=== PATIENT | female | born 1965 | race Caucasian/White ===

== ENCOUNTER → 2016-08-30 | Outpatient (CLI) | payer OTHER ==
[~2016-08-30] MED LIST: CALC-437 OR; FERR-7 PO; FURO40TA PO; LEVO50TA66 PO; MULT-690 PO; POTA-167 PO; SPIR50TA2 PO; WARF4TAB31 PO
[2016-08-30 16:53] LABS: Partial Thromboplastin Time 41.6 sec (22.64-33.71)
[2016-08-30 17:03] LABS: INR 2.34 (0.9-1.15); Prothrombin Time 24.1 sec (9.37-12.3)
== END | disposition home or self-care (01) ==
LOC: LAB 11:48
PROVIDERS: ATTEND Internal Medicine Cardiovascular Disease
DX: K74.60 Unspecified cirrhosis of liver (principal); R79.1 Abnormal coagulation profile; D64.9 Anemia, unspecified; Z13.0 Encounter for screening for diseases of the blood and blood-forming organs and certain disorders involving the immune mechanism
CPT/HCPCS: 36415; 82390; 82728; 83540; 85610; 85730; 86225; 86235; 86592; 86644; 86645; 86664; 86704; 86706; 86708; 86803; 87340

== ENCOUNTER → 2016-09-06 | Outpatient (CLI) | payer OTHER ==
[2016-09-06 09:40] VITALS: BP 117/79
[2016-09-06 16:47] LABS: Partial Thromboplastin Time 39.9 sec (22.64-33.71)
[2016-09-06 16:50] LABS: Basophils # (auto) 0.1 uL; Basophils % (auto) 1.3 % (0.0-2.0); DEFINITIVE VIEW TRANSMISSION; Eosinophils # (auto) 0.2 uL; Eosinophils % (auto) 3.6 % (0.0-7.0); Hematocrit 40.3 % (36.0-46.0); Hemoglobin 13.1 g/dL (12.2-16.2); Lymphocytes # (auto) 0.6 uL; Lymphocytes % (auto) 13.9 % (10.0-50.0); Mean Corpuscular Hemoglobin 26.7 pg (28.0-32.0); Mean Corpuscular Hgb Conc. 32.4 g/dL (32.0-36.0); Mean Corpuscular Volume 82.4 fL (80.0-100.0); Mean Platelet Volume 8.2 fL (7.4-10.4); Monocytes # (auto) 0.3 uL; Monocytes % (auto) 7.1 % (0.0-12.0); Neutrophils # (auto) 3.3 uL; Neutrophils % (auto) 74.1 % (37.0-80.0); Platelet Count (auto) 199 10^3/uL (140-450); Red Cell Distribution Width 16.9 % (11.6-16.0); White Blood Cell 4.4 10^3/uL (4.4-10.8)
[2016-09-06 16:59] LABS: INR 2.01 (0.9-1.15); Prothrombin Time 20.7 sec (9.37-12.3)
[2016-09-06 17:27] LABS: BUN/Creatinine Ratio 17.4; Calcium 10.4 mg/dL (8.5-10.1); Potassium 3.9 mmol/L (3.5-5.1)
== END | disposition home or self-care (01) ==
LOC: Rad HDHVI 09:38
PROVIDERS: ATTEND Internal Medicine Cardiovascular Disease
DX: I10 Essential (primary) hypertension (principal); D64.9 Anemia, unspecified; R79.1 Abnormal coagulation profile
CPT/HCPCS: 36415; 71020; 80048; 85025; 85610; 85730; G0463

== ENCOUNTER 2016-09-08 06:39 | Day surgery (SDC) | payer OTHER ==
[2016-09-08 18:03] LABS: Body Fluid Polymorphonuclear 20 %
== END 2016-09-08 13:08 | disposition home or self-care (01) ==
LOC: CATH 06:39
PROVIDERS: ATTEND Internal Medicine Cardiovascular Disease
DX: R18.8 Other ascites (principal); K74.69 Other cirrhosis of liver; D64.9 Anemia, unspecified; Z95.0 Presence of cardiac pacemaker; I48.91 Unspecified atrial fibrillation; I09.9 Rheumatic heart disease, unspecified
CPT/HCPCS: 49083; 82945; 83615; 84155; 84157; 87205; 88104; 88305; 88341; 88342; 89051; J7030

== ENCOUNTER → 2016-11-07 | Outpatient (CLI) | payer OTHER ==
[2016-11-07 12:29] LABS: Partial Thromboplastin Time 38.8 sec (22.64-33.71)
[2016-11-07 12:45] LABS: Albumin 3.8 g/dL (3.4-5.0); BUN/Creatinine Ratio 11.5; Calcium 8.7 mg/dL (8.5-10.1); INR 2.07 (0.9-1.15); Potassium 3.6 mmol/L (3.5-5.1); Prothrombin Time 21.3 sec (9.37-12.3)
[2016-11-07 12:48] LABS: Bilirubin, Total 1.9 mg/dL (0.2-1.0); Total Protein 7.9 g/dL (6.4-8.2)
[2016-11-07 12:55] LABS: B-Type Natriuretic Peptide 72.51 pg/mL (0-100)
[2016-11-07 13:05] LABS: Temperature: 22.3 C (20.0-25.0)
[2016-11-07 13:29] LABS: Basophils # (auto) 0 uL; Basophils % (auto) 0.8 % (0.0-2.0); Eosinophils # (auto) 0.2 uL; Eosinophils % (auto) 5.3 % (0.0-7.0); Hematocrit 37.7 % (36.0-46.0); Hemoglobin 12.7 g/dL (12.2-16.2); Lymphocytes # (auto) 0.6 uL; Lymphocytes % (auto) 16.2 % (10.0-50.0); Mean Corpuscular Hemoglobin 27.6 pg (28.0-32.0); Mean Corpuscular Hgb Conc. 33.6 g/dL (32.0-36.0); Mean Corpuscular Volume 82.2 fL (80.0-100.0); Monocytes # (auto) 0.3 uL; Monocytes % (auto) 7.4 % (0.0-12.0); Neutrophils # (auto) 2.7 uL; Neutrophils % (auto) 70.3 % (37.0-80.0); Platelet Count (auto) 199 10^3/uL (140-450); Red Cell Distribution Width 17.1 % (11.6-16.0); White Blood Cell 3.9 10^3/uL (4.4-10.8)
== END | disposition home or self-care (01) ==
LOC: LAB 09:54
PROVIDERS: ATTEND Internal Medicine Cardiovascular Disease
DX: I50.20 Unspecified systolic (congestive) heart failure (principal); K74.60 Unspecified cirrhosis of liver
CPT/HCPCS: 36415; 80053; 82103; 82105; 82390; 82728; 83540; 83550; 83880; 85025; 85610; 85730; 86038

== ENCOUNTER → 2016-12-06 | Outpatient (CLI) | payer OTHER ==
[~2016-12-06] MED LIST changes: +LEVO75TA50 PO; +POTA10TA51 PO
[2016-12-06 09:15] VITALS: BP 110/82
[2016-12-06 10:00] VITALS: BP 110/77
[2016-12-06 16:10] LABS: Partial Thromboplastin Time 39.1 sec (22.64-33.71)
[2016-12-06 16:11] LABS: Basophils # (auto) 0 uL; Basophils % (auto) 0.5 % (0.0-2.0); Eosinophils # (auto) 0.2 uL; Eosinophils % (auto) 4.6 % (0.0-7.0); Lymphocytes # (auto) 0.6 uL; Lymphocytes % (auto) 14.5 % (10.0-50.0); Mean Corpuscular Hemoglobin 27.3 pg (28.0-32.0); Mean Corpuscular Hgb Conc. 33.3 g/dL (32.0-36.0); Mean Corpuscular Volume 81.8 fL (80.0-100.0); Monocytes # (auto) 0.3 uL; Monocytes % (auto) 8.9 % (0.0-12.0); Neutrophils # (auto) 2.8 uL; Neutrophils % (auto) 71.5 % (37.0-80.0); Platelet Count (auto) 220 10^3/uL (140-450); Red Cell Distribution Width 16.3 % (11.6-16.0); White Blood Cell 3.9 10^3/uL (4.4-10.8)
[2016-12-06 16:14] LABS: INR 1.94 (0.9-1.15)
[2016-12-06 16:18] LABS: BUN/Creatinine Ratio 13.2; Calcium 9.2 mg/dL (8.5-10.1); Potassium 3.8 mmol/L (3.5-5.1)
== END | disposition home or self-care (01) ==
LOC: Rad HDHVI 08:50
PROVIDERS: ATTEND Internal Medicine Cardiovascular Disease
DX: I10 Essential (primary) hypertension (principal); D64.9 Anemia, unspecified; R79.1 Abnormal coagulation profile; Z01.812 Encounter for preprocedural laboratory examination
CPT/HCPCS: 36415; 71020; 80048; 85025; 85610; 85730; 93005; G0463

== ENCOUNTER 2016-12-08 11:39 | Day surgery (SDC) | payer OTHER ==
[2016-12-08 20:14] LABS: Body Fluid Polymorphonuclear 20 %
== END 2016-12-08 15:00 | disposition home or self-care (01) ==
LOC: CATH 11:39
PROVIDERS: ATTEND Internal Medicine Cardiovascular Disease
DX: K72.90 Hepatic failure, unspecified without coma (principal); R18.8 Other ascites; I09.9 Rheumatic heart disease, unspecified
CPT/HCPCS: 36415; 49083; 87205; 88305; 88342; 89051; J7030

== ENCOUNTER → 2016-12-12 | Outpatient (CLI) | payer OTHER | END | disposition home or self-care (01) | LOC: Rad HDHVI 14:48 | PROVIDERS: ATTEND Internal Medicine Cardiovascular Disease | DX: K74.60 Unspecified cirrhosis of liver (principal) | CPT/HCPCS: 93306 ==

== ENCOUNTER → 2016-12-26 | Outpatient (CLI) | payer OTHER | END | disposition home or self-care (01) | LOC: HDHVI->DVH 11:00 | PROVIDERS: ATTEND Internal Medicine Cardiovascular Disease | DX: R18.8 Other ascites (principal) | CPT/HCPCS: 76700 ==

== ENCOUNTER → 2017-02-28 | Outpatient (CLI) | payer OTHER ==
[~2017-02-28] VITALS: Ht 162.6 cm; Wt 59.9 kg
[2017-02-28 09:20] VITALS: BP 119/75
[2017-02-28 09:45] VITALS: BP 121/74
[2017-02-28 12:29] LABS: Basophils # (auto) 0 uL; CONDITION Y; Eosinophils # (auto) 0.1 uL; Eosinophils % (auto) 3.1 % (0.0-7.0); Hematocrit 39.2 % (36.0-46.0); Hemoglobin 13.3 g/dL (12.2-16.2); Lymphocytes # (auto) 0.6 uL; Lymphocytes % (auto) 14.8 % (10.0-50.0); Mean Corpuscular Hemoglobin 28.3 pg (28.0-32.0); Mean Corpuscular Hgb Conc. 33.9 g/dL (32.0-36.0); Mean Corpuscular Volume 83.6 fL (80.0-100.0); Monocytes # (auto) 0.3 uL; Monocytes % (auto) 7.4 % (0.0-12.0); Neutrophils # (auto) 2.9 uL; Neutrophils % (auto) 73.7 % (37.0-80.0); Platelet Count (auto) 204 10^3/uL (140-450); Red Cell Distribution Width 16.5 % (11.6-16.0); White Blood Cell 3.9 10^3/uL (4.4-10.8)
[2017-02-28 12:45] LABS: INR 1.53 (0.9-1.15); Partial Thromboplastin Time 34.9 sec (22.64-33.71)
[2017-02-28 12:57] LABS: Potassium 3.8 mmol/L (3.5-5.1)
[2017-02-28 12:58] LABS: Prothrombin Time 16.8 sec (9.37-12.3)
== END | disposition home or self-care (01) ==
LOC: Rad HDHVI 08:58
PROVIDERS: ATTEND Internal Medicine Cardiovascular Disease
DX: Z01.812 Encounter for preprocedural laboratory examination (principal); I70.0 Atherosclerosis of aorta; I10 Essential (primary) hypertension; I51.7 Cardiomegaly; D64.9 Anemia, unspecified; K74.69 Other cirrhosis of liver; I25.10 Atherosclerotic heart disease of native coronary artery without angina pectoris; R79.1 Abnormal coagulation profile; Z95.2 Presence of prosthetic heart valve
CPT/HCPCS: 36415; 71020; 80048; 85025; 85610; 85730; 93005; G0463

== ENCOUNTER → 2017-03-14 | Outpatient (CLI) | payer OTHER ==
[~2017-03-14] MED LIST changes: -LEVO50TA66 PO; -POTA10TA51 PO
[2017-03-14 12:05] VITALS: BP 114/76
[2017-03-14 13:05] VITALS: BP 119/77
== END | disposition home or self-care (01) ==
LOC: CHF HDHVI 11:58
PROVIDERS: ATTEND Internal Medicine Cardiovascular Disease
DX: I50.9 Heart failure, unspecified (principal); J90 Pleural effusion, not elsewhere classified
CPT/HCPCS: 93701; 94620; G0463

== ENCOUNTER → 2017-03-22 | Outpatient (CLI) | payer OTHER ==
[2017-03-22 09:40] VITALS: BP 107/65
[2017-03-22 10:20] VITALS: BP 100/62
== END | disposition home or self-care (01) ==
LOC: CHF HDHVI 09:38
PROVIDERS: ATTEND Internal Medicine Cardiovascular Disease
DX: I27.0 Primary pulmonary hypertension (principal); K74.60 Unspecified cirrhosis of liver
CPT/HCPCS: G0463

== ENCOUNTER → 2017-04-13 | Outpatient (CLI) | payer OTHER ==
[2017-04-13 12:00] VITALS: BP 116/74
[2017-04-13 15:26] VITALS: BP 118/78
== END | disposition home or self-care (01) ==
LOC: CHF HDHVI 10:08
PROVIDERS: ATTEND Internal Medicine Cardiovascular Disease
DX: I09.9 Rheumatic heart disease, unspecified (principal); I27.0 Primary pulmonary hypertension
CPT/HCPCS: G0463

== ENCOUNTER 2017-04-16 09:13 | Inpatient (IN) | payer OTHER ==
[~2017-04-16] VITALS: Ht 162.6 cm; Wt 55.9 kg
[2017-04-16 11:30] LABS: Basophils # (auto) 0.1 uL; Basophils % (auto) 1.4 % (0.0-2.0); CONDITION Y; Eosinophils # (auto) 0.1 uL; Eosinophils % (auto) 3.1 % (0.0-7.0); Hemoglobin 12.8 g/dL (12.2-16.2); Lymphocytes # (auto) 0.5 uL; Lymphocytes % (auto) 12.6 % (10.0-50.0); Mean Corpuscular Hemoglobin 29.1 pg (28.0-32.0); Mean Corpuscular Hgb Conc. 34.5 g/dL (32.0-36.0); Mean Corpuscular Volume 84.5 fL (80.0-100.0); Mean Platelet Volume 6.8 fL (7.4-10.4); Monocytes # (auto) 0.3 uL; Monocytes % (auto) 7.5 % (0.0-12.0); Neutrophils # (auto) 3.1 uL; Neutrophils % (auto) 75.4 % (37.0-80.0); Platelet Count (auto) 229 10^3/uL (140-450); White Blood Cell 4.1 10^3/uL (4.4-10.8)
[2017-04-16 11:52] LABS: Albumin 3.6 g/dL (3.4-5.0); Alkaline Phosphatase 150 U/L (45-117); Anion Gap 10 (5-15); Aspartate Aminotransferase 27 U/L (15-37); BUN/Creatinine Ratio 10.7; Bilirubin, Total 1.8 mg/dL (0.2-1.0); Blood Urea Nitrogen 9 mg/dL (7-18); Calcium 8.9 mg/dL (8.5-10.1); Carbon Dioxide 26 mmol/L (21-32); Chloride 92 mmol/L (98-107); GFR African American 91 mL/min; GFR Non-African American 75 mL/min; Glucose 86 mg/dL (74-106); Potassium 3.9 mmol/L (3.5-5.1); Sodium 128 mmol/L (136-145); Total Protein 7.6 g/dL (6.4-8.2)
[2017-04-16] MEDS ORDERED: LEVOFLOXACIN 500MG 100 ML IV ONE (12:00)
[2017-04-16] MEDS ORDERED: MORPHINE SULF INJ 2 MG/ML SYRINGE 1ML IV PRN ×2 (13:30)
[2017-04-16] MEDS ORDERED: ACETAMINOPHEN 325 MG TAB PO PRN (13:30)
[2017-04-16] MEDS ORDERED: TEMAZEPAM 15 MG CAP PO PRN (13:30)
[2017-04-16] MEDS ORDERED: HYDROcodone-ACET 5/325MG TAB PO PRN (13:30)
[2017-04-16] MEDS ORDERED: ONDANSETRON HCL 4 MG/2 ML VIAL IV PRN (13:30)
[2017-04-16] MEDS ORDERED: VANCOMYCIN PER PHARMACY 0 MG IV SCH (13:30)
[2017-04-16] MEDS ORDERED: DOCUSATE SOD 100 MG CAP PO PRN (13:30)
[2017-04-16] MEDS ORDERED: NITROGLYCERIN 0.4 MG SL TAB SL PRN (13:30)
[2017-04-16 13:54] LABS: INR 1.44 (0.9-1.15); Prothrombin Time 15.8 sec (9.37-12.3)
[2017-04-16] MEDS: SODIUM CHLOR 0.9% PF (SALINE LOCK) 10ML VIAL IV SCH ×2 (14:07→21:49)
[2017-04-16] MEDS: VANCOMYCIN 1GM/250ML D5W 250 ML IV SCH (15:08)
[2017-04-16] MEDS ORDERED: WARFARIN SODIUM 5 MG TAB PO ONE (17:00)
[2017-04-16] MEDS: SPIRONOLACTONE 25 MG TAB PO SCH (18:00)
[2017-04-16] MEDS: FERROUS SULFATE 325 MG TAB PO SCH (18:00)
[2017-04-16 18:08] VITALS: BP 93/84
[2017-04-16] MEDS: FAMOTIDINE 20 MG TAB PO SCH (21:49)
[2017-04-16 22:00] VITALS: BP 105/70
[2017-04-17] MEDS: VANCOMYCIN 1GM/250ML D5W 250 ML IV SCH ×2 (03:37→15:00)
[2017-04-17 05:30] VITALS: BP 107/72
[2017-04-17 05:36] LABS: Basophils # (auto) 0 uL; Basophils % (auto) 0.9 % (0.0-2.0); CONDITION Y; Eosinophils # (auto) 0.1 uL; Eosinophils % (auto) 2.9 % (0.0-7.0); Hematocrit 36.9 % (36.0-46.0); Hemoglobin 12.6 g/dL (12.2-16.2); Lymphocytes # (auto) 0.5 uL; Lymphocytes % (auto) 12.2 % (10.0-50.0); Mean Corpuscular Hemoglobin 28.8 pg (28.0-32.0); Mean Corpuscular Hgb Conc. 34.1 g/dL (32.0-36.0); Mean Corpuscular Volume 84.3 fL (80.0-100.0); Mean Platelet Volume 7.1 fL (7.4-10.4); Monocytes # (auto) 0.3 uL; Monocytes % (auto) 6.7 % (0.0-12.0); Neutrophils # (auto) 3.2 uL; Neutrophils % (auto) 77.3 % (37.0-80.0); Platelet Count (auto) 207 10^3/uL (140-450); Red Cell Distribution Width 15.8 % (11.6-16.0); White Blood Cell 4.1 10^3/uL (4.4-10.8)
[2017-04-17 05:49] LABS: INR 1.52 (0.9-1.15); Partial Thromboplastin Time 34.1 sec (22.64-33.71); Prothrombin Time 16.6 sec (9.37-12.3)
[2017-04-17 05:56] LABS: Albumin 2.8 g/dL (3.4-5.0); BUN/Creatinine Ratio 11.6; Potassium 3.9 mmol/L (3.5-5.1)
[2017-04-17 05:59] LABS: Bilirubin, Total 1.6 mg/dL (0.2-1.0); Total Protein 6.4 g/dL (6.4-8.2)
[2017-04-17] MEDS: SODIUM CHLOR 0.9% PF (SALINE LOCK) 10ML VIAL IV SCH ×3 (05:59→21:59)
[2017-04-17] MEDS: LEVOTHYROXINE SODIUM 25 MCG TAB PO SCH (06:29)
[2017-04-17] MEDS: SPIRONOLACTONE 25 MG TAB PO SCH ×3 (08:00→17:05)
[2017-04-17 09:00] VITALS: BP 99/69
[2017-04-17] MEDS: FERROUS SULFATE 325 MG TAB PO SCH ×2 (09:58→17:05)
[2017-04-17] MEDS: MULTIPLE VITAMIN TAB PO SCH (09:58)
[2017-04-17] MEDS: POTASSIUM CHL 10 Meq TABLET PO SCH (09:59)
[2017-04-17] MEDS: FAMOTIDINE 20 MG TAB PO SCH ×2 (09:59→22:00)
[2017-04-17] MEDS: FUROSEMIDE 40 MG TAB PO SCH (10:00)
[2017-04-17] MEDS: CALCIUM W/VIT D (600MG/400IU) TAB PO SCH (10:00)
[2017-04-17] MEDS: LEVOFLOXACIN 500MG 100 ML IV SCH (10:01)
[2017-04-17 13:00] VITALS: BP 103/64
[2017-04-17 16:50] VITALS: BP 99/66
[2017-04-17] MEDS ORDERED: WARFARIN SODIUM 5 MG TAB PO ONE (17:00)
[2017-04-17 22:00] VITALS: BP 110/65
[2017-04-18 02:32] LABS: INR 1.91 (0.9-1.15); Partial Thromboplastin Time 34.3 sec (22.64-33.71)
[2017-04-18] MEDS: VANCOMYCIN 1GM/250ML D5W 250 ML IV SCH (02:44)
[2017-04-18 05:30] VITALS: BP 99/63
[2017-04-18] MEDS: SODIUM CHLOR 0.9% PF (SALINE LOCK) 10ML VIAL IV SCH (06:05)
[2017-04-18] MEDS: LEVOTHYROXINE SODIUM 25 MCG TAB PO SCH (06:13)
[2017-04-18 07:30] VITALS: BP 90/55
[2017-04-18] MEDS: SPIRONOLACTONE 25 MG TAB PO SCH ×2 (08:00→12:00)
[2017-04-18] MEDS: FERROUS SULFATE 325 MG TAB PO SCH (08:45)
[2017-04-18 09:00] VITALS: BP 90/55
[2017-04-18] MEDS: FAMOTIDINE 20 MG TAB PO SCH (10:00)
[2017-04-18] MEDS: FUROSEMIDE 40 MG TAB PO SCH (10:00)
[2017-04-18] MEDS ORDERED: FER325T PO (10:04)
[2017-04-18] MEDS ORDERED: FURO40TA4 PO (10:04)
[2017-04-18] MEDS ORDERED: LEV25T PO (10:04)
[2017-04-18] MEDS ORDERED: FAM20T PO (10:04)
[2017-04-18] MEDS ORDERED: ACE325T PO (10:04)
[2017-04-18] MEDS: CALCIUM W/VIT D (600MG/400IU) TAB PO SCH (10:38)
[2017-04-18] MEDS: LEVOFLOXACIN 500MG 100 ML IV SCH (10:39)
[2017-04-18] MEDS: MULTIPLE VITAMIN TAB PO SCH (10:39)
[2017-04-18] MEDS: POTASSIUM CHL 10 Meq TABLET PO SCH (10:39)
[2017-04-18] MEDS ORDERED: WARFARIN SODIUM 2 MG TAB PO ONE (17:00)
== END 2017-04-18 13:00 | disposition home or self-care (01) | DRG 432 ==
LOC: ER 09:13 → TELE 09:14 → TELE-E-ADS 15:13 → TELE-WESTW 17:42
PROVIDERS: ADMIT Internal Medicine; ATTEND Internal Medicine
PROC: 0W9G30Z Drainage of Peritoneal Cavity with Drainage Device, Percutaneous Approach (ICD-10-PCS; principal; 2017-04-16)
DX: K74.60 Unspecified cirrhosis of liver (principal); J18.1 Lobar pneumonia, unspecified organism; I13.0 Hypertensive heart and chronic kidney disease with heart failure and stage 1 through stage 4 chronic kidney disease, or unspecified chronic kidney disease; K76.6 Portal hypertension; R18.8 Other ascites; I50.9 Heart failure, unspecified; E87.1 Hypo-osmolality and hyponatremia; J98.11 Atelectasis; I27.2 Other secondary pulmonary hypertension; N18.3 Chronic kidney disease, stage 3 (moderate); I70.0 Atherosclerosis of aorta; K72.10 Chronic hepatic failure without coma; Z95.2 Presence of prosthetic heart valve; Z88.0 Allergy status to penicillin; Z88.8 Allergy status to other drugs, medicaments and biological substances; Z79.01 Long term (current) use of anticoagulants
CPT/HCPCS: 36415; 71020; 74176; 76942; 80053; 80202; 84484; 85025; 85610; 85730; 87040; 93005; 96365; 99291; J1956

== ENCOUNTER 2017-04-22 23:14 | Emergency (ER) | payer OTHER ==
[~2017-04-22] VITALS: Ht 162.6 cm; Wt 63.0 kg
[~2017-04-22 23:14] MED LIST changes: +ACE325T PO; +FAM20T PO; +FER325T PO; +FURO40TA4 PO; +LEV25T PO
[2017-04-22 23:53] LABS: Basophils # (auto) 0.1 uL; Basophils % (auto) 1.8 % (0.0-2.0); Eosinophils # (auto) 0.2 uL; Eosinophils % (auto) 5.1 % (0.0-7.0); Hematocrit 39.1 % (36.0-46.0); Hemoglobin 13.1 g/dL (12.2-16.2); Lymphocytes # (auto) 0.9 uL; Lymphocytes % (auto) 17.9 % (10.0-50.0); Mean Corpuscular Hemoglobin 28.2 pg (28.0-32.0); Mean Corpuscular Hgb Conc. 33.7 g/dL (32.0-36.0); Mean Corpuscular Volume 83.8 fL (80.0-100.0); Monocytes # (auto) 0.4 uL; Monocytes % (auto) 8.3 % (0.0-12.0); Neutrophils # (auto) 3.3 uL; Neutrophils % (auto) 66.9 % (37.0-80.0); Platelet Count (auto) 198 10^3/uL (140-450); Red Cell Distribution Width 14.8 % (11.6-16.0); White Blood Cell 4.9 10^3/uL (4.4-10.8)
[2017-04-23] MEDS ORDERED: SODIUM CHLORIDE 0.9% 1,000 ML IV ONE
[2017-04-23] MEDS ORDERED: ONDANSETRON HCL 4 MG/2 ML VIAL IV ONE
[2017-04-23 00:05] LABS: INR 1.54 (0.9-1.15); Partial Thromboplastin Time 30.8 sec (22.64-33.71); Prothrombin Time 16.9 sec (9.37-12.3)
[2017-04-23 00:19] LABS: Albumin 2.9 g/dL (3.4-5.0); Amylase 102 U/L (25-115); Anion Gap 10 (5-15); Aspartate Aminotransferase 37 U/L (15-37); BUN/Creatinine Ratio 14.5; Blood Urea Nitrogen 12 mg/dL (7-18); Calcium 8.2 mg/dL (8.5-10.1); Carbon Dioxide 26 mmol/L (21-32); Chloride 95 mmol/L (98-107); GFR African American 92 mL/min; GFR Non-African American 76 mL/min; Glucose 112 mg/dL (74-106); Potassium 3.6 mmol/L (3.5-5.1); Sodium 131 mmol/L (136-145)
[2017-04-23 00:24] LABS: Alkaline Phosphatase 151 U/L (45-117); Bilirubin, Total 0.9 mg/dL (0.2-1.0); Total Protein 6.5 g/dL (6.4-8.2)
[2017-04-23] MEDS ORDERED: IOHEXOL 300 MG/ML 100ML BOTTLE IJ ONE (01:02)
[2017-04-23] MEDS ORDERED: ALUM & MAG HYDROX-SIMETH LIQ(MAALOX) 30 ML PO ONE (01:15)
[2017-04-23] MEDS ORDERED: LIDOCAINE VISCOUS 2% 15ML UD PO ONE (01:15)
[2017-04-23] MEDS ORDERED: DONNATAL 5ml ORAL Elix (BELLADONNA ALK-PHENOBARB) PO ONE (01:15)
[2017-04-23 01:20] VITALS: BP 126/79
[2017-04-23 01:40] LABS: Urine RBC None Seen /hpf (0 - 4)
[2017-04-23 02:21] LABS: Urine Bilirubin Negative (Negative); Urine Blood Negative /uL (Negative); Urine Color Yellow (Yellow); Urine Glucose Normal (Normal); Urine Ketone Negative (Negative); Urine Nitrite Negative (Negative); Urine Urobilinogen Normal (Negative)
== END 2017-04-23 02:37 | disposition home or self-care (01) ==
LOC: EDBD 23:14 → ER 23:14
DX: T62.91XA Toxic effect of unspecified noxious substance eaten as food, accidental (unintentional), initial encounter (principal); I10 Essential (primary) hypertension; Z88.0 Allergy status to penicillin; Z88.8 Allergy status to other drugs, medicaments and biological substances; Z79.899 Other long term (current) drug therapy; Z95.0 Presence of cardiac pacemaker; Y92.89 Other specified places as the place of occurrence of the external cause
CPT/HCPCS: 36415; 74177; 80053; 81001; 82150; 83690; 84484; 85025; 85610; 85730; 96361; 96374; 99285; J2405; J7030; Q9967

== ENCOUNTER → 2017-06-27 | Outpatient (CLI) | payer OTHER ==
[~2017-06-27] MED LIST changes: +DEXL60CA3 PO; +RIOC1TAB3 PO
[2017-06-27 09:20] VITALS: BP 109/68
[2017-06-27 12:32] LABS: Basophils # (auto) 0.1 uL; Basophils % (auto) 1.9 % (0.0-2.0); Eosinophils # (auto) 0.1 uL; Eosinophils % (auto) 3.8 % (0.0-7.0); Hematocrit 35.6 % (36.0-46.0); Hemoglobin 12.2 g/dL (12.2-16.2); Lymphocytes # (auto) 0.4 uL; Lymphocytes % (auto) 11.1 % (10.0-50.0); Mean Corpuscular Hgb Conc. 34.3 g/dL (32.0-36.0); Mean Corpuscular Volume 84.8 fL (80.0-100.0); Monocytes # (auto) 0.4 uL; Monocytes % (auto) 10.5 % (0.0-12.0); Neutrophils # (auto) 2.5 uL; Neutrophils % (auto) 72.7 % (37.0-80.0); Nucleated Red Blood Cells % 0.2 %; Platelet Count (auto) 198 10^3/uL (140-450); Red Cell Distribution Width 15.4 % (11.8-14.3); White Blood Cell 3.4 10^3/uL (4.4-10.8)
[2017-06-27 12:42] LABS: BUN/Creatinine Ratio 10.8; Calcium 8.6 mg/dL (8.5-10.1); INR 2.05 (0.9-1.15); Partial Thromboplastin Time 39.9 sec (22.64-33.71); Potassium 3.6 mmol/L (3.5-5.1); Prothrombin Time 22.5 sec (9.37-12.3)
[2017-06-28 10:05] VITALS: BP 110/72
== END | disposition home or self-care (01) ==
LOC: Rad HDHVI 09:02
PROVIDERS: ATTEND Internal Medicine Cardiovascular Disease
DX: Z01.818 Encounter for other preprocedural examination (principal); I51.7 Cardiomegaly; J90 Pleural effusion, not elsewhere classified; I10 Essential (primary) hypertension; I70.0 Atherosclerosis of aorta; D64.9 Anemia, unspecified; R79.1 Abnormal coagulation profile; Z95.2 Presence of prosthetic heart valve
CPT/HCPCS: 36415; 71020; 80048; 85025; 85610; 85730; 93005; G0463

== ENCOUNTER → 2017-06-28 | Day surgery (SDC) | payer OTHER ==
[~2017-06-28] VITALS: Ht 162.6 cm; Wt 63.5 kg
[~2017-06-28] MED LIST changes: -FURO40TA PO; +LIDOCAINE 2%HCL (LOCAL ANESTH.) INJ 20ML MDV ONE; -MULT-690 PO
== END | disposition home or self-care (01) ==
LOC: CATH 06:48
PROVIDERS: ATTEND Internal Medicine Cardiovascular Disease
DX: R18.8 Other ascites (principal); I27.20 Pulmonary hypertension, unspecified; K74.69 Other cirrhosis of liver; K72.90 Hepatic failure, unspecified without coma
CPT/HCPCS: 49082

== ENCOUNTER 2017-08-02 11:12 | Inpatient (IN) | payer OTHER ==
[~2017-08-02] VITALS: Ht 162.6 cm; Wt 52.4 kg
[2017-08-02] MEDS ORDERED: LEVOFLOXACIN 500MG 100 ML IV ONE (12:30)
[2017-08-02 12:50] LABS: Basophils # (auto) 0.1 uL; Basophils % (auto) 1.3 % (0.0-2.0); Eosinophils # (auto) 0.1 uL; Eosinophils % (auto) 1.5 % (0.0-7.0); Hematocrit 38.8 % (36.0-46.0); Hemoglobin 13.3 g/dL (12.2-16.2); Lymphocytes # (auto) 0.4 uL; Lymphocytes % (auto) 8.3 % (10.0-50.0); Mean Corpuscular Hemoglobin 28.5 pg (28.0-32.0); Mean Corpuscular Hgb Conc. 34.2 g/dL (32.0-36.0); Mean Corpuscular Volume 83.3 fL (80.0-100.0); Mean Platelet Volume 6.6 fL (6.9-10.8); Monocytes # (auto) 0.4 uL; Monocytes % (auto) 7.7 % (0.0-12.0); Neutrophils # (auto) 3.9 uL; Neutrophils % (auto) 81.2 % (37.0-80.0); Nucleated Red Blood Cells % 0.1 %; Platelet Count (auto) 228 10^3/uL (140-450); Red Cell Distribution Width 15.2 % (11.8-14.3); White Blood Cell 4.8 10^3/uL (4.4-10.8)
[2017-08-02 13:07] LABS: INR 1.6 (0.9-1.15); Prothrombin Time 17.5 sec (9.37-12.3)
[2017-08-02 13:11] LABS: Albumin 2.8 g/dL (3.4-5.0); BUN/Creatinine Ratio 16.2; Bilirubin, Total 1.9 mg/dL (0.2-1.0); Calcium 8.2 mg/dL (8.5-10.1); Potassium 3.6 mmol/L (3.5-5.1); Total Protein 6.4 g/dL (6.4-8.2)
[2017-08-02] MEDS ORDERED: NITROGLYCERIN 0.4 MG SL TAB SL PRN (17:00)
[2017-08-02] MEDS ORDERED: MORPHINE SULF INJ 2 MG/ML SYRINGE 1ML IV PRN (17:00)
[2017-08-02] MEDS ORDERED: ACETAMINOPHEN 325 MG TAB PO PRN (17:45)
[2017-08-02] MEDS: FERROUS SULFATE 325 MG TAB PO SCH (18:00)
[2017-08-02] MEDS ORDERED: SPIRONOLACTONE 25 MG TAB PO SCH (18:15)
[2017-08-02] MEDS ORDERED: WARFARIN SODIUM 5 MG TAB PO ONE (20:15)
[2017-08-02 21:00] VITALS: BP 90/62
[2017-08-02 21:36] VITALS: BP 90/62
[2017-08-02] MEDS: RIOCIGUAT BASE PO SCH (21:58)
[2017-08-02] MEDS: FAMOTIDINE 20 MG TAB PO SCH (22:08)
[2017-08-03 04:16] VITALS: BP 97/66
[2017-08-03 05:00] VITALS: BP 96/71
[2017-08-03 05:53] LABS: INR 1.53 (0.9-1.15); Prothrombin Time 16.8 sec (9.37-12.3)
[2017-08-03 05:55] LABS: Basophils # (auto) 0 uL; Basophils % (auto) 0.8 % (0.0-2.0); Eosinophils # (auto) 0.1 uL; Eosinophils % (auto) 2.1 % (0.0-7.0); Hematocrit 35.9 % (36.0-46.0); Hemoglobin 12.6 g/dL (12.2-16.2); Lymphocytes # (auto) 0.4 uL; Lymphocytes % (auto) 8.9 % (10.0-50.0); Mean Corpuscular Hemoglobin 29.2 pg (28.0-32.0); Mean Corpuscular Volume 83.6 fL (80.0-100.0); Mean Platelet Volume 6.6 fL (6.9-10.8); Monocytes # (auto) 0.4 uL; Neutrophils # (auto) 3.4 uL; Neutrophils % (auto) 79.2 % (37.0-80.0); Platelet Count (auto) 192 10^3/uL (140-450); Red Cell Distribution Width 14.9 % (11.8-14.3); White Blood Cell 4.3 10^3/uL (4.4-10.8)
[2017-08-03] MEDS: RIOCIGUAT BASE PO SCH ×3 (05:57→22:06)
[2017-08-03] MEDS: LEVOTHYROXINE SODIUM 25 MCG TAB PO SCH (05:57)
[2017-08-03] MEDS ORDERED: LEVOTHYROXINE SODIUM 50 MCG TAB PO SCH (07:00)
[2017-08-03] MEDS: FERROUS SULFATE 325 MG TAB PO SCH ×2 (08:00→17:10)
[2017-08-03 08:29] VITALS: BP 92/57
[2017-08-03] MEDS ORDERED: DEXLANSOPRAZOLE 60 MG PO SCH (10:00)
[2017-08-03] MEDS ORDERED: PATIENTS OWN MEDICATION (Warfarin Sodium (Coumadin) 1 TAB) PO SCH (10:00)
[2017-08-03] MEDS: FUROSEMIDE 40 MG TAB PO SCH (10:02)
[2017-08-03] MEDS: POTASSIUM CHL 10 Meq TABLET PO SCH (10:02)
[2017-08-03] MEDS: SPIRONOLACTONE 25 MG TAB PO SCH (10:02)
[2017-08-03] MEDS: FAMOTIDINE 20 MG TAB PO SCH (10:03)
[2017-08-03] MEDS: PANTOPRAZOLE 40 MG TAB PO SCH (10:15)
[2017-08-03 13:00] VITALS: BP 103/68
[2017-08-03] MEDS ORDERED: LIDOCAINE 2%HCL (LOCAL ANESTH.) INJ 20ML MDV ONE (15:02)
[2017-08-03] MEDS ORDERED: WARFARIN SODIUM 5 MG TAB PO ONE (17:00)
[2017-08-03 21:59] VITALS: BP 82/55
[2017-08-04 05:01] VITALS: BP 91/56
[2017-08-04] MEDS: RIOCIGUAT BASE PO SCH ×2 (05:33→13:35)
[2017-08-04] MEDS: LEVOTHYROXINE SODIUM 25 MCG TAB PO SCH (05:33)
[2017-08-04 06:09] LABS: INR 1.46 (0.9-1.15); Partial Thromboplastin Time 33.6 sec (22.64-33.71)
[2017-08-04 08:00] VITALS: BP 77/46
[2017-08-04 08:35] VITALS: BP 77/46
[2017-08-04] MEDS: FERROUS SULFATE 325 MG TAB PO SCH (09:21)
[2017-08-04] MEDS: PANTOPRAZOLE 40 MG TAB PO SCH (09:45)
[2017-08-04] MEDS: SPIRONOLACTONE 25 MG TAB PO SCH (09:46)
[2017-08-04] MEDS: POTASSIUM CHL 10 Meq TABLET PO SCH (09:47)
[2017-08-04] MEDS: FUROSEMIDE 40 MG TAB PO SCH (09:47)
[2017-08-04] MEDS ORDERED: ALBUMIN 25% 100 ML IV ONE (11:00)
[2017-08-04 12:43] VITALS: BP 85/56
[2017-08-04 13:56] VITALS: BP 85/56
[2017-08-04] MEDS ORDERED: WARFARIN SODIUM 5 MG TAB PO ONE (17:00)
== END 2017-08-04 14:17 | disposition home or self-care (01) | DRG 432 ==
LOC: ER 11:12 → OVERFLOW 18:19 → WEST WING 20:36
PROVIDERS: ADMIT Internal Medicine Cardiovascular Disease; ATTEND Internal Medicine Cardiovascular Disease
PROC: 0W9G3ZZ Drainage of Peritoneal Cavity, Percutaneous Approach (ICD-10-PCS; principal; 2017-08-04)
DX: K74.69 Other cirrhosis of liver (principal); J18.9 Pneumonia, unspecified organism; K76.6 Portal hypertension; I27.20 Pulmonary hypertension, unspecified; R18.8 Other ascites; E87.1 Hypo-osmolality and hyponatremia; I10 Essential (primary) hypertension; I08.0 Rheumatic disorders of both mitral and aortic valves; I73.9 Peripheral vascular disease, unspecified; Z95.2 Presence of prosthetic heart valve
CPT/HCPCS: 36415; 71020; 80053; 83605; 85025; 85610; 85730; 87040; 87081; 93005; 96374; J1956

== ENCOUNTER → 2017-08-02 | Outpatient (CLI) | payer OTHER ==
[~2017-08-02] MED LIST changes: -LIDOCAINE 2%HCL (LOCAL ANESTH.) INJ 20ML MDV ONE
[2017-08-02 10:00] VITALS: BP 99/61
[2017-08-02 10:55] VITALS: BP 100/58
== END | disposition home or self-care (01) ==
LOC: CHF HDHVI 09:51
PROVIDERS: ATTEND Internal Medicine Cardiovascular Disease
DX: I09.9 Rheumatic heart disease, unspecified (principal); R18.8 Other ascites; R53.83 Other fatigue
CPT/HCPCS: G0463

== ENCOUNTER → 2017-09-05 | Outpatient (CLI) | payer OTHER ==
[~2017-09-05] MED LIST changes: -ACE325T PO; +BUME2TAB3 PO; -CALC-437 OR; +CHOL1TAB28 PO; +CHOL20007 PO; -DEXL60CA3 PO; +ENO30SY SC; -FAM20T PO; -FER325T PO; -FERR-7 PO; -LEV25T PO; +LEVO50TA7 PO; -LEVO75TA50 PO; +METO5TAB56 PO; +MULTTAB99 PO; +PANT1INJ3 PO; -POTA-167 PO; +POTA10TA34 PO; -RIOC1TAB3 PO; +RIOC1TAB5 PO; +SPIR25TA89 PO; +TEMA30CA PO; +WARF3TAB22 PO; -WARF4TAB31 PO
[2017-09-05 09:40] VITALS: BP 80/56
[2017-09-05 10:10] VITALS: BP 85/50
[2017-09-05 12:13] LABS: Basophils # (auto) 0.1 uL; Basophils % (auto) 1.2 % (0.0-2.0); Eosinophils # (auto) 0.1 uL; Eosinophils % (auto) 2.7 % (0.0-7.0); Hematocrit 39.8 % (36.0-46.0); Hemoglobin 13.6 g/dL (12.2-16.2); Lymphocytes # (auto) 0.4 uL; Lymphocytes % (auto) 10.2 % (10.0-50.0); Mean Corpuscular Hgb Conc. 34.1 g/dL (32.0-36.0); Mean Corpuscular Volume 82.2 fL (80.0-100.0); Monocytes # (auto) 0.3 uL; Monocytes % (auto) 8.2 % (0.0-12.0); Neutrophils # (auto) 3.3 uL; Neutrophils % (auto) 77.7 % (37.0-80.0); Nucleated Red Blood Cells % 0.1 %; Platelet Count (auto) 225 10^3/uL (140-450); Red Blood Cells 4.84 10^6/uL (4.0-5.20); White Blood Cell 4.2 10^3/uL (4.4-10.8)
[2017-09-05 12:26] LABS: INR 1.74 (0.9-1.15); Partial Thromboplastin Time 34.4 sec (22.64-33.71); Prothrombin Time 19.1 sec (9.37-12.3)
[2017-09-05 12:36] LABS: Potassium 4.4 mmol/L (3.5-5.1)
[2017-09-05 12:37] LABS: Albumin 2.6 g/dL (3.4-5.0); BUN/Creatinine Ratio 15.5; Bilirubin, Total 1.1 mg/dL (0.2-1.0); Calcium 8.3 mg/dL (8.5-10.1); Total Protein 6.1 g/dL (6.4-8.2)
== END | disposition home or self-care (01) ==
LOC: LAB 09:01
PROVIDERS: ATTEND Internal Medicine Cardiovascular Disease
DX: Z01.812 Encounter for preprocedural laboratory examination (principal); I10 Essential (primary) hypertension; D64.9 Anemia, unspecified; R79.1 Abnormal coagulation profile; E55.9 Vitamin D deficiency, unspecified; K74.69 Other cirrhosis of liver; R18.8 Other ascites
CPT/HCPCS: 36415; 80053; 82306; 85025; 85610; 85730; G0463

== ENCOUNTER → 2017-09-06 | Day surgery (SDC) | payer OTHER | END | disposition home or self-care (01) | LOC: CATH 08:39 | PROVIDERS: ATTEND Internal Medicine Cardiovascular Disease | DX: R18.8 Other ascites (principal); I27.20 Pulmonary hypertension, unspecified; Z88.0 Allergy status to penicillin; Z88.8 Allergy status to other drugs, medicaments and biological substances; I34.0 Nonrheumatic mitral (valve) insufficiency; I50.9 Heart failure, unspecified; J44.9 Chronic obstructive pulmonary disease, unspecified; Z90.710 Acquired absence of both cervix and uterus; F41.9 Anxiety disorder, unspecified; F32.9 Major depressive disorder, single episode, unspecified | CPT/HCPCS: 49082; 82140 ==

== ENCOUNTER 2017-10-05 07:01 | Day surgery (SDC) | payer OTHER ==
[~2017-10-05] VITALS: Ht 162.6 cm; Wt 49.9 kg
[~2017-10-05 07:01] MED LIST changes: -BUME2TAB3 PO; -CHOL1TAB28 PO; -CHOL20007 PO; -ENO30SY SC; -METO5TAB56 PO; -MULTTAB99 PO; -PANT1INJ3 PO; -SPIR25TA89 PO; -TEMA30CA PO
[2017-10-05] MEDS ORDERED: TRIAMCINOLONE 40MG/ML 1ML VIAL IM ONE (10:00)
[2017-10-05] MEDS ORDERED: VANCOMYCIN 1GM/250ML 250 ML IV ONE (12:30)
[2017-11-24] MEDS ORDERED: MULTTAB99 PO (17:41)
[2017-11-24] MEDS ORDERED: CHOL1TAB28 PO (17:41)
[2017-11-26] MEDS ORDERED: BUME2TAB3 PO (15:07)
[2017-11-26] MEDS ORDERED: SPIR25TA89 PO (15:08)
[2017-11-26] MEDS ORDERED: TEMA30CA PO (15:19)
[2017-11-26] MEDS ORDERED: CHOL20007 PO (15:21)
== END 2017-10-05 14:10 | disposition home or self-care (01) ==
LOC: CATH 07:01
PROVIDERS: ATTEND Internal Medicine Cardiovascular Disease
DX: R18.8 Other ascites (principal); Z88.0 Allergy status to penicillin; I27.20 Pulmonary hypertension, unspecified; K74.69 Other cirrhosis of liver; I35.0 Nonrheumatic aortic (valve) stenosis; I34.0 Nonrheumatic mitral (valve) insufficiency; I50.9 Heart failure, unspecified; J44.9 Chronic obstructive pulmonary disease, unspecified; Z90.710 Acquired absence of both cervix and uterus; F41.9 Anxiety disorder, unspecified; F32.9 Major depressive disorder, single episode, unspecified; Z88.8 Allergy status to other drugs, medicaments and biological substances
CPT/HCPCS: 49082; 83986; 87205; 89051; J3301; J3370

== ENCOUNTER → 2017-10-26 | Outpatient (CLI) | payer OTHER ==
[~2017-10-26] MED LIST changes: +BUME2TAB3 PO; +CHOL1TAB28 PO; +CHOL20007 PO; +ENO30SY SC; +METO5TAB56 PO; +MULTTAB99 PO; +PANT1INJ3 PO; +SPIR25TA89 PO; +TEMA30CA PO
== END | disposition home or self-care (01) ==
LOC: LAB 09:08
PROVIDERS: ATTEND Internal Medicine Cardiovascular Disease
DX: I10 Essential (primary) hypertension (principal); Z79.01 Long term (current) use of anticoagulants
CPT/HCPCS: 85610

== ENCOUNTER 2017-10-29 06:52 | Day surgery (SDC) | payer OTHER ==
[~2017-10-29 06:52] MED LIST changes: -BUME2TAB3 PO; -CHOL1TAB28 PO; -CHOL20007 PO; -ENO30SY SC; -METO5TAB56 PO; -MULTTAB99 PO; -PANT1INJ3 PO; -SPIR25TA89 PO; -TEMA30CA PO
[2017-10-29] MEDS ORDERED: METO5TAB56 PO (07:49)
[2017-10-29] MEDS ORDERED: BUME2TAB3 PO (07:49)
[2017-10-29] MEDS ORDERED: ENO30SY SC (07:49)
[2017-10-29] MEDS ORDERED: PANT1INJ3 PO (07:49)
[2017-10-29] MEDS ORDERED: LIDOCAINE 2%HCL (LOCAL ANESTH.) INJ 20ML MDV ONE (07:52)
[2017-11-24] MEDS ORDERED: MULTTAB99 PO (17:41)
[2017-11-24] MEDS ORDERED: CHOL1TAB28 PO (17:41)
[2017-11-26] MEDS ORDERED: BUME2TAB3 PO (15:07)
[2017-11-26] MEDS ORDERED: SPIR25TA89 PO (15:08)
[2017-11-26] MEDS ORDERED: TEMA30CA PO (15:19)
[2017-11-26] MEDS ORDERED: CHOL20007 PO (15:21)
== END 2017-10-29 10:55 | disposition home or self-care (01) ==
LOC: CATH 06:52
PROVIDERS: ATTEND Internal Medicine Cardiovascular Disease
DX: R18.8 Other ascites (principal); I27.20 Pulmonary hypertension, unspecified; K74.69 Other cirrhosis of liver; I05.0 Rheumatic mitral stenosis; Z88.0 Allergy status to penicillin; Z91.013 Allergy to seafood
CPT/HCPCS: 49082

== ENCOUNTER → 2017-11-05 | Outpatient (CLI) | payer OTHER ==
[~2017-11-05] MED LIST changes: +BUME2TAB3 PO; +CHOL1TAB28 PO; +CHOL20007 PO; +ENO30SY SC; -FURO40TA4 PO; +METO5TAB56 PO; +MULTTAB99 PO; +PANT1INJ3 PO; -RIOC1TAB5 PO; +SPIR25TA89 PO; -SPIR50TA2 PO; +TEMA30CA PO
[2017-11-05 09:00] VITALS: BP 87/58
[2017-11-05 10:15] VITALS: BP 88/58
[2017-11-05 10:32] LABS: Basophils # (auto) 0 uL; Basophils % (auto) 0.7 % (0.0-2.0); Eosinophils # (auto) 0.1 uL; Eosinophils % (auto) 2.2 % (0.0-7.0); Hematocrit 40.6 % (36.0-46.0); Hemoglobin 13.6 g/dL (12.2-16.2); Lymphocytes # (auto) 0.8 uL; Lymphocytes % (auto) 12.5 % (10.0-50.0); Mean Corpuscular Hemoglobin 28.8 pg (28.0-32.0); Mean Corpuscular Hgb Conc. 33.4 g/dL (32.0-36.0); Mean Corpuscular Volume 86.1 fL (80.0-100.0); Monocytes # (auto) 0.5 uL; Monocytes % (auto) 7.5 % (0.0-12.0); Neutrophils # (auto) 5.2 uL; Neutrophils % (auto) 77.1 % (37.0-80.0); Platelet Count (auto) 331 10^3/uL (140-450); Red Blood Cells 4.71 10^6/uL (4.0-5.20); Red Cell Distribution Width 16.5 % (11.8-14.3); White Blood Cell 6.7 10^3/uL (4.4-10.8)
[2017-11-05 10:36] LABS: Albumin 2.7 g/dL (3.4-5.0); BUN/Creatinine Ratio 20.6; Calcium 8.6 mg/dL (8.5-10.1); Potassium 4.6 mmol/L (3.5-5.1)
[2017-11-05 10:40] LABS: Bilirubin, Total 1.9 mg/dL (0.2-1.0); Total Protein 6.5 g/dL (6.4-8.2)
[2017-11-05 10:43] LABS: INR 1.08 (0.9-1.15); Partial Thromboplastin Time 36.9 sec (22.64-33.71); Prothrombin Time 11.8 sec (9.37-12.3)
== END | disposition home or self-care (01) ==
LOC: CHF HDHVI 09:10
PROVIDERS: ATTEND Internal Medicine Cardiovascular Disease
DX: D64.9 Anemia, unspecified (principal); I10 Essential (primary) hypertension; R79.1 Abnormal coagulation profile
CPT/HCPCS: 36415; 80053; 85025; 85610; 85730; G0463